=== PATIENT | male | born 1990 | race Caucasian/White ===

== ENCOUNTER 2020-11-18 10:42 | Emergency (ER) | payer OTHER ==
[~2020-11-18 10:42] MED LIST: AMOXICILLIN500 MG PO; KEFLEX CAP 500500 MG PO; LODINE CAP 300300 MG PO; NAPROSYN500 MG PO; NORCO 5-325 TA1 EACH PO
[2020-11-18] MEDS ORDERED: NAPROSYN500 MG PO (12:07)
== END 2020-11-18 12:16 | disposition home or self-care (01) ==
LOC: ER1 10:42
DX: S93.402A Sprain of unspecified ligament of left ankle, initial encounter (principal); F17.200 Nicotine dependence, unspecified, uncomplicated; X50.1XXA Overexertion from prolonged static or awkward postures, initial encounter
CPT/HCPCS: 73590; 73610; 99283

== ENCOUNTER 2021-08-24 08:02 | Emergency (ER) | payer OTHER ==
[2021-08-24 09:04] LABS: HEMOGLOBIN 17.9 gm/dl (14.0-17.5); RED BLOOD COUNT 5.94 M/UL (4.20-5.50); WHITE BLOOD COUNT 8.1 K/UL (4.5-11.0)
[2021-08-24] MEDS ORDERED: HYDROCODON-ACE1 EAC2 PO (09:31)
[2021-08-24] MEDS ORDERED: BACTROBAN OINT22 GM EXT (09:33)
[2021-08-24 10:11] LABS: BUN/CREATININE RATIO 11 (0-10)
== END 2021-08-24 11:00 | disposition home or self-care (01) ==
LOC: ER1 08:02
PROVIDERS: Emergency Medicine
DX: S92.592A Other fracture of left lesser toe(s), initial encounter for closed fracture (principal); S80.02XA Contusion of left knee, initial encounter; S80.01XA Contusion of right knee, initial encounter; S60.222A Contusion of left hand, initial encounter; S60.221A Contusion of right hand, initial encounter; F17.200 Nicotine dependence, unspecified, uncomplicated; V49.9XXA Car occupant (driver) (passenger) injured in unspecified traffic accident, initial encounter
CPT/HCPCS: 80053; 85025; 96374; 96375; 99283; J2270; J2405

== ENCOUNTER 2022-01-16 08:43 | Emergency (ER) | payer OTHER ==
[~2022-01-16 08:43] MED LIST changes: +BACTROBAN OINT22 GM EXT; +HYDROCODON-ACE1 EAC2 PO
[2022-01-16 09:24] LABS: RED BLOOD COUNT 5.33 M/UL (4.20-5.50); WHITE BLOOD COUNT 13.2 K/UL (4.5-11.0)
[2022-01-16 10:43] LABS: BUN/CREATININE RATIO 12 (0-10)
[2022-01-16] MEDS ORDERED: HYDROCODON-ACE1 EAC4 PO (13:44)
== END 2022-01-16 14:12 | disposition home or self-care (01) ==
LOC: ER1 08:43
PROVIDERS: Emergency Medicine
DX: S22.32XA Fracture of one rib, left side, initial encounter for closed fracture (principal); S32.029A Unspecified fracture of second lumbar vertebra, initial encounter for closed fracture; F17.200 Nicotine dependence, unspecified, uncomplicated; R40.2410 Glasgow coma scale score 13-15, unspecified time; V43.52XA Car driver injured in collision with other type car in traffic accident, initial encounter; Y92.410 Unspecified street and highway as the place of occurrence of the external cause
CPT/HCPCS: 71260; 80053; 81001; 82550; 82553; 84484; 85025; 93005; 96374; 96375; 96376; 99284; J2270; J2405; Q9967